=== PATIENT | female | born 1940 | race Caucasian/White ===

== ENCOUNTER → 2016-09-04 | Outpatient (CLI) | payer MEDICARE ==
--- NOTE | 2016-09-05 09:17 | XR ---
EXAMINATION TYPE: XR ankle complete LT DATE OF EXAM: 09/04/2016 COMPARISON: NONE HISTORY: Left ankle pain, edema swelling TECHNIQUE: 3 view left ankle FINDINGS: Ankle mortise is intact. Soft tissues appear normal. Some minimal diffuse swelling is not e xcluded. Osseous structures are intact. No acute fractures. Achilles tendon calcaneal heel spur is pr esent. IMPRESSION: 1. Minimal diffuse soft tissue swelling. 2. No acute osseous abnormality.
== END | disposition home or self-care (01) ==
LOC: RADXRYALE 15:29
PROVIDERS: ATTEND Internal Medicine
DX: M79.89 Other specified soft tissue disorders (principal); M25.572 Pain in left ankle and joints of left foot; R60.9 Edema, unspecified

== ENCOUNTER → 2017-06-27 | Outpatient (CLI) | payer MEDICARE ==
--- NOTE | 2017-06-27 11:52 | XR ---
EXAMINATION TYPE: XR chest 2V DATE OF EXAM: 06/27/2017 COMPARISON: NONE HISTORY: Cough for one week TECHNIQUE: Frontal and lateral views of the chest are obtained. FINDINGS: There is no focal air space opacity, pleural effusion, or pneumothorax seen. The cardiac silhouette size is within normal limits. The osseous structures are intact. Numerous surgical stapl es are seen within the midline upper abdomen and right paracentral upper abdomen. Multilevel mild deg enerative changes are present of the thoracic spine. IMPRESSION: No acute cardiopulmonary process.
== END | disposition home or self-care (01) ==
LOC: RADXRYALE 10:42
PROVIDERS: ATTEND Internal Medicine
DX: R05 Cough (principal)
CPT/HCPCS: 71046

== ENCOUNTER → 2023-12-03 | Outpatient (CLI) | payer MEDICARE ==
--- NOTE | 2023-12-03 22:34 | MR ---
EXAMINATION TYPE: MR pituitary wo/w con DATE OF EXAM: 12/03/2023 COMPARISON: None HISTORY: Diplopia, abnormal labs. CONTRAST: Performed utilizing 6 mL intravenous Gadavist gadolinium contrast. TECHNIQUE: Multiplanar, multiecho imaging on a 3.0 Erinn magnet is performed through the brain. Stud y is performed within 24 hours of arrival to the hospital. The craniovertebral junction is normal. Optic chiasm as visualized is unremarkable. Attention is paid to the pituitary. Pituitary stalk is in the midline. No pituitary enlargement is ev ident. No focal microadenoma identified. No macroadenoma is evident. Normal flow voids are through the carotid siphons. Proximal A1 and M1 segments appeared normal There is limited evaluation of the brain. There are scattered periventricular and deep white matter hyperin tensities on T2-weighted sequences can be compatible with microvascular ischemic change. No obvious l arge infarcts are identified. Dedicated MRI of the brain could be performed if additional evaluation would be of benefit. Ventricles and sulci are prominent for the patient age. Extra-axial spaces are somewhat prominent. IMPRESSION: 1. Age-related atrophy. 2. No suspicious macroadenoma or microadenoma identified. 3. No mass effect on the optic chiasm
== END | disposition home or self-care (01) ==
LOC: RADMRIMAIN 16:58
PROVIDERS: ATTEND Family Medicine
DX: H31.119 Age-related choroidal atrophy, unspecified eye (principal); R79.89 Other specified abnormal findings of blood chemistry; H53.2 Diplopia
CPT/HCPCS: 70553

== ENCOUNTER → 2024-01-07 | Outpatient (CLI) | payer MEDICARE ==
[2024-01-07 18:42] LABS: Basophils # (A) 0.03 X 10*3/uL (0.00-0.10); Basophils % (A) 0.5 %; Eosinophils # (A) 0.27 X 10*3/uL (0.04-0.35); Eosinophils % (A) 4.4 %; HCT 39.7 % (37.2-46.3); HGB 12.7 g/dL (12.0-15.0); Lymphocytes # (A) 1.47 X 10*3/uL (0.90-5.00); Lymphocytes % (A) 24.2 %; MCH 30.3 pg (27.0-32.0); MCV 94.7 FL (80.0-97.0); Mean Platelet Volume 12.9 FL (9.5-12.2); Monocytes # (A) 0.65 X 10*3/uL (0.20-1.00); Monocytes % (A) 10.7 %; NRBC Per 100 WBC 0 X 10*3/uL (0.00-0.01); Neutrophils # (A) 3.63 X 10*3/uL (1.80-7.70); Neutrophils % (A) 59.9 %; Platelet Count 167 X 10*3/uL (140-440); RBC 4.19 X 10*6/uL (4.10-5.20); RDW 14.4 % (11.5-14.5); WBC 6.07 X 10*3/uL (4.50-10.00)
[2024-01-07 18:55] LABS: ALT 43 U/L (8-44); AST 48 U/L (13-35); Albumin 3.8 g/dL (3.8-4.9); Albumin/Globulin Ratio 1.15 Ratio (1.60-3.17); Alkaline Phosphatase 416 U/L (41-126); BUN/Creat Ratio 17.45 Ratio (12.00-20.00); Blood Urea Nitrogen 19.2 mg/dL (9.0-27.0); Calcium 9.4 mg/dL (8.7-10.3); Carbon Dioxide 25.3 mmol/L (21.6-31.8); Chloride 105 mmol/L (96-109); Globulin 3.3 g/dL (1.6-3.3); Glucose 82 mg/dL (70-110); Potassium 5.3 mmol/L (3.5-5.5); Sodium 140 mmol/L (135-145); Total Bilirubin 0.8 mg/dL (0.3-1.2); Total Protein 7.1 g/dL (6.2-8.2)
== END | disposition home or self-care (01) ==
LOC: LABWHC1 14:21
PROVIDERS: ATTEND Internal Medicine Gastroenterology
DX: K74.3 Primary biliary cirrhosis (principal)
CPT/HCPCS: 36415; 80053; 85025

== ENCOUNTER 2024-06-08 11:56 | Emergency (ER) | payer MEDICARE ==
[2024-06-08 12:13] VITALS: BP 148/68; PULSE 59; RESP 18; TEMP 97.4
--- NOTE | 2024-06-08 12:44 | XR ---
EXAMINATION TYPE: XR chest 2V DATE OF EXAM: 06/08/2024 12:38 PM COMPARISON: 06/27/2017 CLINICAL INDICATION: Female, 84 years old with history of dysrhythmia: Shortness of breath TECHNIQUE: XR chest 2V views of the chest are obtained. FINDINGS: Scattered senescent parenchymal changes noted. Hyperinflation compatible with COPD. No evidence for infiltrate. No evidence for atelectasis. Heart size is stable. Mediastinal structures are stable and grossly unremarkable. No evidence for hilar prominence. Degenerative changes dorsal spine. IMPRESSION: 1. No evidence for acute pulmonary disease. [facility], , 06/08/2024 12:42 PM
[2024-06-08 12:46] LABS: Basophils % (A) 0 %; Eosinophils # (A) 0.2 k/uL (0-0.7); Eosinophils % (A) 4 %; HCT 42.9 % (34.0-46.0); HGB 13.3 gm/dL (11.4-16.0); Lymphocytes # (A) 1.1 k/uL (1.0-4.8); Lymphocytes % (A) 18 %; MCH 29.8 pg (25.0-35.0); MCHC 30.9 g/dL (31.0-37.0); MCV 96.5 fL (80.0-100.0); Mean Platelet Volume 9.6; Monocytes # (A) 0.4 k/uL (0-1.0); Monocytes % (A) 7 %; Neutrophils # (A) 4.1 k/uL (1.3-7.7); Neutrophils % (A) 68 %; Platelet Count 154 k/uL (150-450); RBC 4.45 m/uL (3.80-5.40); RDW 14.5 % (11.5-15.5)
[2024-06-08 12:57] LABS: ALT 45 U/L (4-34); AST 51 U/L (14-36); African American GFR (CKD) 69 (>60 ml/min/1.73 sqM); Alkaline Phosphatase 397 U/L (38-126); Anion Gap 11 mmol/L; Blood Urea Nitrogen 22 mg/dL (7-17); Calcium 9.6 mg/dL (8.4-10.2); Carbon Dioxide 20 mmol/L (22-30); Chloride 106 mmol/L (98-107); Glucose 92 mg/dL (74-99); Magnesium 1.8 mg/dL (1.6-2.3); Non-African American GFR(CKD) 60 (>60 ml/min/1.73 sqM); Potassium 4.4 mmol/L (3.5-5.1); Sodium 137 mmol/L (137-145); Total Bilirubin 1.1 mg/dL (0.2-1.3); Total Protein 7.7 g/dL (6.3-8.2)
[2024-06-08 13:04] LABS: INR 0.9 (<1.2); Partial Thromboplastin Time 23.6 sec (22.0-30.0); Prothrombin Time 10.3 sec (10.0-12.5)
--- NOTE | 2024-06-08 13:07 | ED ---
Arrhythmia/Palpitations HPI - General Source: patient, RN notes reviewed Mode of arrival: ambulatory Limitations: no limitations <Bernardo Joyce - Last Filed: 06/08/24 13:05> <Dameon Cuevas - Last Filed: 06/08/24 13:27> - General Chief Complaint: Arrhythmia/Palpitations Stated Complaint: fluttering in chest Time Seen by Provider: 06/08/24 12:11 - History of Present Illness Initial Comments: Quick note: This is an 84-year-old female presenting for fluttering in chest starting this morning. Patient denies known cause for fluttering, denying use of caffeine or nicotine. Denies associated pain, dizziness, dyspnea, sweating. Denies any significant cardiac history. (Bernardo Joyce) Dictation was produced using [employer] dictation software. please excuse any grammatical, word or spelling errors. Chief Complaint: 84-year-old female with 1 day of palpitations History of Present Illness: Patient is an 84-year-old female she has no significant comorbidities complains of palpitations. Patient sees a portrait studio photographer. She however denies any significant cardiac history. She does have a history of hypertension. States that today she felt like a fluttering on the outside of her left anterior chest. States that it lasted for about 5 to 10 minutes. She had multiple episodes today. Patient denies any associated dizziness lightheadedness or chest pain or shortness of breath. Denies any symptoms at the bedside The ROS documented in this emergency department record has been reviewed and confirmed by me. Those systems with pertinent positive or negative responses have been documented in the HPI. All other systems are other negative and/or noncontributory. (Dameon Cuevas) - Related Data Home Medications Medication Instructions Recorded Confirmed allopurinoL [Zyloprim] 100 mg PO DAILY 10/13/13 11/02/13 amLODIPine BESYLATE [Norvasc] 2.5 mg PO DAILY 10/13/13 11/02/13 Allergies Allergy/AdvReac Type Severity Reaction Status Date / Time No Known Allergies Allergy Verified 06/08/24 12:14 Review of Systems ROS Other: All systems not noted in ROS Statement are negative. <Bernardo Joyce - Last Filed: 06/08/24 13:05> ROS Other: All systems not noted in ROS Statement are negative. <Dameon Cuevas - Last Filed: 06/08/24 13:27> ROS Statement: Those systems with pertinent positive or pertinent negative responses have been documented in the HPI. 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 Past Anesthesia/Blood Transfusion Reactions: No Reported Reaction Past Psychological History: No Psychological Hx Reported Smoking Status: Never smoker Past Alcohol Use History: None Reported Past Drug Use History: None Reported - Past Family History Father Family Medical History: No Reported History <Bernardo Joyce - Last Filed: 06/08/24 13:05> General Exam Limitations: no limitations <Bernardo Joyce - Last Filed: 06/08/24 13:05> <Dameon Cuevas - Last Filed: 06/08/24 13:27> - General Exam Comments Initial Comments: Visual Physical Exam Vital signs reviewed General: Well-appearing, nontoxic, no acute distress. Head: Normocephalic, atraumatic Eyes: PERRLA, EOMI ENT: Airway patent Chest: Nonlabored breathing Skin: No visual rash, normal skin tone Neuro: Alert and oriented 3 Musculoskeletal: No gross abnormalities (Bernardo Joyce) PHYSICAL EXAM: General Impression: Alert and oriented x3, not in acute distress HEENT: Normocephalic atraumatic, extra-ocular movements intact, pupils equal and reactive to light bilaterally, mucous membranes moist. Cardiovascular: Heart regular rate and rhythm Chest: Able to complete full sentences, no retractions, no tachypnea Abdomen: abdomen soft, non-tender, non-distended, no organomegaly Musculoskeletal: Pulses present and equal in all extremities, no peripheral edema Motor: no focal deficits noted Neurological: CN II-XII grossly intact, no focal motor or sensory deficits noted Skin: Intact with no visualized rashes Psych: Normal affect and mood (Dameon Cuevas) Course Vital Signs 06/08/24 12:11 Temperature 97.4 F L Pulse Rate 59 L Respiratory 18 Rate Blood Pressure 148/68 O2 Sat by Pulse 100 Oximetry Medical Decision Making - Lab Data Result diagrams: 06/08/24 12:26 06/08/24 12:26 <Bernardo Joyce - Last Filed: 06/08/24 13:05> - Lab Data Result diagrams: 06/08/24 12:26 06/08/24 12:26 <FaithDameon D - Last Filed: 06/08/24 13:27> - Medical Decision Making I completed the quick note portion of this chart signed NICKI Hawthorne (Bernardo Joyce) Was pt. sent in by a medical professional or institution (ALLIE Fitzgerald, UPHOLSTERY ESTIMATOR, urgent care, hospital, or long-term...) When possible be specific @ -No Did you speak to anyone other than the patient for history (EMS, parent, family, police, friend...)? What history was obtained from this source @ -No Did you review nursing and triage notes (agree or disagree)? Why? @ -I reviewed and agree with nursing and triage notes Were old charts reviewed (outside hosp., previous admission, EMS record, old EKG, old radiological studies, urgent care reports/EKG's, long-term records)? Report findings @ -No old charts were reviewed Differential Diagnosis (chest pain, altered mental status, abdominal pain women, abdominal pain men, vaginal bleeding, musculoskeletal, weakness, fever, dyspnea, syncope, headache, dizziness, GI bleed, back pain, seizure, CVA, palpatations, mental health)? @ - Differential Palpitations: Ventricular arrhythmias, atrial arrhythmias, myocardial infarction, anemia, th yrotoxicosis, electrolyte imbalance, hypokalemia, pulmonary embolism, pulmonary disease, drugs, alcohol, anxiety, stress.... This is not meant to be an all-inclusive list. EKG interpreted by me (3pts min.). @ -My EKG interpretation: Ventricular rate 55, sinus bradycardia,. 160, QRS 80, QTc 398. No NC prolongation, no QTC prolongation, no ST or T-wave changes noted. EKG compared to default value showing no changes. Overall, this EKG is unremarkable X-rays interpreted by me (1pt min.). @ -X-ray shows no acute processes CT interpreted by me (1pt min.). @ -None done U/S interpreted by me (1pt. min.). @ -None done What testing was considered but not performed or refused? (CT, X-rays, U/S, labs)? Why? @ -None What meds were considered but not given or refused? Why? @ -None Was smoking cessation discussed for >3mins.? @ -No Were there social determinants of health that impacted care today? How? (Homelessness, low income, unemployed, alcoholism, drug addiction, transportation, low edu. Level, literacy, decrease access to med. care, long-term, rehab)? @ -No Was there de-escalation of care discussed even if they declined (Discuss DNR or withdrawal of care, Hospice)? DNR status @ -No What co-morbidities impacted this encounter? (DM, HTN, Smoking, COPD, CAD, Cancer, CVA, ARF, Chemo, Hep., AIDS, mental health diagnosis, sleep apnea, morbid obesity)? @ -None Was patient admitted / discharged? Hospital course, mention meds given and route, prescriptions, significant lab abnormalities, going to OR and other pertinent info. @ -84-year-old well-appearing female with palpitations. Vital signs stable. EKG is unremarkable. Labs and imaging is unremarkable. Patient told to follow- up with cardiology or primary care doctor for outpatient Holter monitor testing. Return precautions discussed. Patient discharged Did you discuss the management of the patient with other professionals (professionals i.e. , PA, UPHOLSTERY ESTIMATOR, lab, RT, psych nurse, social work supervisor, shale planer operator, teacher, marketing officer, field nurse case manager)? Give summary @ -No Was critical care preformed (if so, how long)? @ -No Undiagnosed new problem with uncertain prognosis? @ -No Drug Therapy requiring intensive monitoring for toxicity (Heparin, Nitro, Insulin, Cardizem)? @ -No Were any procedures done? @ -No Diagnosis/symptom? Acute, or Chronic, or Acute on Chronic? Uncomplicated (without systemic symptoms) or Complicated (systemic symptoms)? @ -Palpitations Side effects of treatment? @ -No Exacerbation, Progression, or Severe Exacerbation? @ -No Poses a threat to life or bodily function? How? (Chest pain, USA, NV, pneumonia, PE, COPD, DKA, ARF, appy, cholecystitis, CVA, Diverticulitis, Homicidal, Suicidal, threat to staff... and all critical care pts) @ -No (Dameon Cuevas) - Lab Data Lab Results 06/08/24 06/08/24 06/08/24 Range/Units 12:26 12:26 12:26 WBC 6.0 (3.8-10.6) k/uL RBC 4.45 (3.80-5.40) m/uL Hgb 13.3 (11.4-16.0) gm/dL Hct 42.9 (34.0-46.0) % MCV 96.5 (80.0-100.0) fL MCH 29.8 (25.0-35.0) pg MCHC 30.9 L (31.0-37.0) g/dL RDW 14.5 (11.5-15.5) % Plt Count 154 (150-450) k/uL MPV 9.6 Neutrophils % 68 % Lymphocytes % 18 % Monocytes % 7 % Eosinophils % 4 % Basophils % 0 % Neutrophils # 4.1 (1.3-7.7) k/uL Lymphocytes # 1.1 (1.0-4.8) k/uL Monocytes # 0.4 (0-1.0) k/uL Eosinophils # 0.2 (0-0.7) k/uL Basophils # 0.0 (0-0.2) k/uL PT 10.3 (10.0-12.5) sec INR 0.9 (<1.2) APTT 23.6 (22.0-30.0) sec Sodium 137 (137-145) mmol/L Potassium 4.4 (3.5-5.1) mmol/L Chloride 106 (98-107) mmol/L Carbon Dioxide 20 L (22-30) mmol/L Anion Gap 11 mmol/L BUN 22 H (7-17) mg/dL Creatinine 0.88 (0.52-1.04) mg/dL Est GFR (CKD-EPI)AfAm 69 (>60 ml/min/1.73 sqM) Est GFR (CKD-EPI)NonAf 60 (>60 ml/min/1.73 sqM) Glucose 92 (74-99) mg/dL Calcium 9.6 (8.4-10.2) mg/dL Magnesium 1.8 (1.6-2.3) mg/dL Total Bilirubin 1.1 (0.2-1.3) mg/dL AST 51 H (14-36) U/L ALT 45 H (4-34) U/L Alkaline Phosphatase 397 H (38-126) U/L Troponin I (0.000-0.034) ng/mL Total Protein 7.7 (6.3-8.2) g/dL Albumin 4.0 (3.5-5.0) g/dL 06/08/24 Range/Units 12:26 WBC (3.8-10.6) k/uL RBC (3.80-5.40) m/uL Hgb (11.4-16.0) gm/dL Hct (34.0-46.0) % MCV (80.0-100.0) fL MCH (25.0-35.0) pg MCHC (31.0-37.0) g/dL RDW (11.5-15.5) % Plt Count (150-450) k/uL MPV Neutrophils % % Lymphocytes % % Monocytes % % Eosinophils % % Basophils % % Neutrophils # (1.3-7.7) k/uL Lymphocytes # (1.0-4.8) k/uL Monocytes # (0-1.0) k/uL Eosinophils # (0-0.7) k/uL Basophils # (0-0.2) k/uL PT (10.0-12.5) sec INR (<1.2) APTT (22.0-30.0) sec Sodium (137-145) mmol/L Potassium (3.5-5.1) mmol/L Chloride (98-107) mmol/L Carbon Dioxide (22-30) mmol/L Anion Gap mmol/L BUN (7-17) mg/dL Creatinine (0.52-1.04) mg/dL Est GFR (CKD-EPI)AfAm (>60 ml/min/1.73 sqM) Est GFR (CKD-EPI)NonAf (>60 ml/min/1.73 sqM) Glucose (74-99) mg/dL Calcium (8.4-10.2) mg/dL Magnesium (1.6-2.3) mg/dL Total Bilirubin (0.2-1.3) mg/dL AST (14-36) U/L ALT (4-34) U/L Alkaline Phosphatase (38-126) U/L Troponin I <0.012 (0.000-0.034) ng/mL Total Protein (6.3-8.2) g/dL Albumin (3.5-5.0) g/dL Disposition <Bernardo Joyce - Last Filed: 06/08/24 13:05> Is patient prescribed a controlled substance at d/c from ED?: No Time of Disposition: 13:25 <Dameon Cuevas - Last Filed: 06/08/24 13:27> Clinical Impression: Palpitations Disposition: HOME SELF-CARE Condition: Fair Instructions (If sedation given, give patient instructions): Heart Palpitations (ED) Referrals: Elmer Monahan MD [Primary Care Provider] - 1-2 days Gabriel Oneill MD [STAFF PHYSICIAN] - 1-2 days
== END 2024-06-08 13:41 | disposition home or self-care (01) ==
LOC: EC 11:56
DX: R00.2 Palpitations (principal)
CPT/HCPCS: 36415; 71046; 80053; 83735; 84484; 85025; 85610; 85730; 93005; 99285

== ENCOUNTER → 2024-07-24 | Outpatient (CLI) | payer MEDICARE ==
[2024-07-24 15:11] LABS: Basophils # (A) 0.04 X 10*3/uL (0.00-0.10); Basophils % (A) 0.7 %; Eosinophils # (A) 0.31 X 10*3/uL (0.04-0.35); Eosinophils % (A) 5.2 %; HCT 39.7 % (37.2-46.3); HGB 12.7 g/dL (12.0-15.0); Lymphocytes % (A) 18.4 %; MCH 30.2 pg (27.0-32.0); MCV 94.5 FL (80.0-97.0); Mean Platelet Volume 12.5 FL (9.5-12.2); Monocytes # (A) 0.71 X 10*3/uL (0.20-1.00); Monocytes % (A) 11.9 %; NRBC Per 100 WBC 0 X 10*3/uL (0.00-0.01); Neutrophils # (A) 3.79 X 10*3/uL (1.80-7.70); Neutrophils % (A) 63.5 %; Platelet Count 137 X 10*3/uL (140-440); RDW 13.7 % (11.5-14.5); WBC 5.97 X 10*3/uL (4.50-10.00)
[2024-07-24 15:34] LABS: ALT 35 U/L (8-44); AST 43 U/L (13-35); Albumin 3.6 g/dL (3.8-4.9); Albumin/Globulin Ratio 1.06 Ratio (1.60-3.17); Alkaline Phosphatase 412 U/L (41-126); Calcium 9.3 mg/dL (8.7-10.3); Carbon Dioxide 23.5 mmol/L (21.6-31.8); Chloride 107 mmol/L (96-109); Globulin 3.4 g/dL (1.6-3.3); Glucose 84 mg/dL (70-110); Potassium 5.1 mmol/L (3.5-5.5); Sodium 142 mmol/L (135-145); Total Bilirubin 0.7 mg/dL (0.3-1.2)
== END | disposition home or self-care (01) ==
LOC: LABWHC1 10:41
PROVIDERS: ATTEND Internal Medicine Gastroenterology
DX: K74.3 Primary biliary cirrhosis (principal)
CPT/HCPCS: 36415; 80053; 85025

== ENCOUNTER → 2024-08-13 | Outpatient (CLI) | payer MEDICARE ==
--- NOTE | 2024-08-13 09:38 | US ---
EXAMINATION TYPE: US liver DATE OF EXAM: 08/13/2024 COMPARISON: NONE CLINICAL INDICATION: Female, 84 years old with history of K74.60 UNSPECIFIED CIRRHOSIS OF LIVER; Chol ecystectomy & Rt nephrectomy TECHNIQUE: Grayscale and color Doppler imaging of the right upper quadrant. FINDINGS: EXAM MEASUREMENTS: Liver Length: 12.0 cm Gallbladder Wall: Surgically absent CBD: 0.6 cm, color Doppler imaging was utilized to isolate the common bile duct for measurement. Right Kidney: Surgically absent COMBINE DRIVER NOTES: very limited scan due to overlying bowel Pancreas: Obscured by bowel gas Liver: Increased attenuation, , cirrhotic contour, difficult to penetrate Gallbladder: Surgically absent Evidence for sonographic Omer's sign: No CBD: wnl Right Kidney: Surgically absent There is heterogeneous hyperechoic appearance of the liver. This limits evaluation for focal masses. Liver is normal in size. No adjacent ascites. IMPRESSION: Heterogeneous hyperechoic appearance of liver consistent with known hepatocellular diseas e. No biliary dilatation or ascites is present. [facility], , 08/13/2024 9:36 AM
== END | disposition home or self-care (01) ==
LOC: RADUSWWP 09:08
PROVIDERS: ATTEND Internal Medicine Gastroenterology
DX: K74.3 Primary biliary cirrhosis (principal)
CPT/HCPCS: 76705